=== PATIENT | female | born 2005 | race Caucasian/White ===

== ENCOUNTER → 2024-05-18 11:56 | Outpatient (CLI) | payer OTHER, SELFPAY ==
--- NOTE | 2024-05-18 12:03 | DI.US.S_ITS ---
US breast LT limited: 05/18/2024. BI-RADS: 1 CLINICAL: 18-year old female for left diagnostic breast ultrasound. Tyrer-Cuzick lifetime risk of 24.6%. No personal or first-degree family history of breast cancer. Current reported family history of breast cancer: maternal grandmother and paternal grandmother. The patient reports diffuse left breast swelling (6 months) and pain (6 months). The patient reports that this has happened in the past, associated with starting control medication, and resolves once she stops the medication. PRIOR EXAMS: No prior relevant exams are available for comparison. ULTRASOUND TECHNIQUE Left breast ultrasound: All 4 quadrants and the retroareolar region were scanned. TISSUE COMPOSITION Left: (b) Homogeneous-fibroglandular. ULTRASOUND FINDINGS Left: There is no suspicious sonographic finding to account for concern by the patient. The whole breast was scanned by the master technician, and field representative image were taken at 12:00, 2:00, 4:00, 6:00, 8:00, and 10:00, 5 cm from the nipple. IMPRESSION: Left * No evidence of malignancy. RECOMMENDATIONS Bilateral * Due to patient's elevated lifetime risk of developing breast cancer, the patient may benefit from a consultation with a high-risk clinic. COMMENTS: Diffuse, non-focal symptoms, such as pain or fullness are typically benign. Clinical follow-up is recommended, and further management of these symptoms should be based on the results of clinical evaluation. If diffuse symptoms persist or become more focal in nature, further clinical evaluation should be considered. Findings and recommendations were conveyed to the patient during today's evaluation. OVERALL ASSESSMENT CATEGORY BI-RADS-1: Negative. ELECTRONICALLY SIGNED: Oksana Bowman M.D. on 05/18/2024 at 01:33:32 PM PT Interpreting Station ID: [id number]
== END ==
PROVIDERS: Referring Provider Nurse Practitioner Family; Visit Provider Nurse Practitioner Family
DX: N64.4 Mastodynia (principal); Z80.3 Family history of malignant neoplasm of breast
CPT/HCPCS: 76642